=== PATIENT | male | born 1995 | race Caucasian/White ===

== ENCOUNTER 2017-10-28 21:14 | Emergency (ER) | payer SELFPAY ==
[2017-10-28 21:38] VITALS: BP 127/75
--- NOTE | 2017-10-28 21:57 | RADIOLOGY REPORT (SQ) ---
EXAM DESCRIPTION: WRIST RIGHT 3 VIEWS COMPLETED DATE/TIME: 10/28/2017 9:48 pm REASON FOR STUDY: Pain s/p injury COMPARISON: None. NUMBER OF VIEWS: Three views. TECHNIQUE: AP, lateral, and oblique radiographic images acquired of the right wrist. LIMITATIONS: None. FINDINGS: MINERALIZATION: Normal. BONES: No acute fracture or dislocation. No worrisome bone lesions. Normal alignment. SOFT TISSUES: No soft tissue swelling. No foreign body. OTHER: No other significant finding. IMPRESSION: NEGATIVE STUDY OF THE RIGHT WRIST. NO RADIOGRAPHIC EVIDENCE OF ACUTE INJURY. TECHNICAL DOCUMENTATION: JOB ID: [id number] [employer]- All Rights Reserved
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
== END 2017-10-28 22:55 | disposition home or self-care (01) ==
LOC: ER 21:14
DX: M25.531 Pain in right wrist (principal); G89.29 Other chronic pain
CPT/HCPCS: 99283; 73110; L3908

== ENCOUNTER 2017-11-12 04:08 | Emergency (ER) | payer SELFPAY ==
--- NOTE | 2017-11-12 05:46 | RADIOLOGY REPORT (SQ) ---
EXAM DESCRIPTION: WRIST RIGHT 3 VIEWS CLINICAL HISTORY: hand and wrist pain s/p injury COMPARISON: None. FINDINGS: 3 views of the right wrist. No acute fracture or dislocation. The scaphoid is unremarkable. The radius, capitate, and lunate are in appropriate anatomic alignment. IMPRESSION: No acute fracture.
--- NOTE | 2017-11-12 05:46 | RADIOLOGY REPORT (SQ) ---
EXAM DESCRIPTION: HAND RIGHT 3 VIEWS CLINICAL HISTORY: hand and wrist pain s/p injury COMPARISON: None. FINDINGS: 3 views of the right hand. No acute fracture or dislocation. Normal osseous mineralization. No radiopaque foreign body. IMPRESSION: No acute fracture or dislocation.
[2017-11-12] MEDS ORDERED: IBUPROFEN 600 MG TABLET PO ONE (05:53)
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
[2017-11-12 06:24] VITALS: BP 112/66
== END 2017-11-12 06:36 | disposition home or self-care (01) ==
LOC: ER 04:08
DX: S69.91XA Unspecified injury of right wrist, hand and finger(s), initial encounter (principal); S60.211A Contusion of right wrist, initial encounter; S60.221A Contusion of right hand, initial encounter; M79.641 Pain in right hand; M25.531 Pain in right wrist; M79.89 Other specified soft tissue disorders; W22.8XXA Striking against or struck by other objects, initial encounter
CPT/HCPCS: 99283; 73130; 73110; L3908

== ENCOUNTER 2018-04-09 22:50 | Emergency (ER) | payer OTHER ==
[2018-04-09 22:55] VITALS: BP 133/79
[2018-04-10] MEDS ORDERED: IBUPROFEN 800 MG TABLET PO ONE (00:05)
--- NOTE | 2018-04-10 00:06 | ER Document Report ---
HPI - HPI Patient complains to provider of: Left hip pain Onset: Other - 2 years Onset/Duration: Persistent Quality of pain: Achy Pain Level: 3 Context: She presents complaining of left anterior hip pain for the past 2 years. Patient states this was a donor site for bone graft. Patient states that he is followed up with [facility] multiple times regarding his continued left hip pain. Patient states that his surgeon said that he does not have an explanation for why the patient has continued to have pain. Patient denies any new injury or fever. Associated Symptoms: Other - Left hip pain Exacerbated by: Movement Relieved by: Denies Similar symptoms previously: Yes Recently seen / treated by doctor: No - ROS ROS below otherwise negative: Yes Systems Reviewed and Negative: Yes All other systems reviewed and negative - CONSTITUTIONAL Constitutional: DENIES: Fever, Chills - NEURO Neurology: DENIES: Weakness - MUSCULOSKELETAL Musculoskeletal: REPORTS: Extremity pain - L hip pain-chronic. DENIES: Swelling Past Medical History - General Information source: Patient - Social History Smoking Status: Current Every Day Smoker Smoking Education Provided: Yes Frequency of alcohol use: Occasional Drug Abuse: None Occupation: Contractor Family History: Reviewed & Not Pertinent Patient has suicidal ideation: No Patient has homicidal ideation: No - Medical History Medical History: Negative Renal/ Medical History: Denies: Hx Peritoneal Dialysis Past Surgical History: Reports: Hx Orthopedic Surgery - L hip Vertical Provider Document - CONSTITUTIONAL Agree With Documented VS: Yes Exam Limitations: No Limitations General Appearance: WD/WN, No Apparent Distress - INFECTION CONTROL TRAVEL OUTSIDE OF THE [place] IN LAST 30 DAYS: No - HEENT HEENT: Atraumatic, Normocephalic - NECK Neck: Normal Inspection, Supple - RESPIRATORY Respiratory: Breath Sounds Normal, No Respiratory Distress - CARDIOVASCULAR Cardiovascular: Regular Rate, Regular Rhythm Pulses: Normal: Femoral - BACK Back: Normal Inspection Notes: No spinal tenderness, no SI joint tenderness - MUSCULOSKELETAL/EXTREMETIES Musculoskeletal/Extremeties: MAEW, Tender - Left anterior hip joint tenderness along scar from previous surgical incision - NEURO Level of Consciousness: Awake, Alert, Appropriate Motor/Sensory: No Motor Deficit, No Sensory Deficit - DERM Integumentary: Warm, Dry, No Rash Course - Re-evaluation Re-evalutation: 04/10/18 01:[address] Watters, patient's x-ray reviewed, no acute findings. - Vital Signs Vital signs: Temp Pulse Resp BP Pulse Ox 97.7 F 88 17 133/79 H 96 04/09/18 22:53 04/09/18 22:53 04/09/18 22:53 04/09/18 22:53 04/09/18 22:53 - Diagnostic Test Radiology reviewed: Pending, Image reviewed Discharge - Discharge Clinical Impression: Chronic hip pain Qualifiers: Laterality: left Qualified Code(s): M25.552 - Pain in left hip; G89.29 - Other chronic pain; G89.29 - Other chronic pain Condition: Stable Disposition: HOME, SELF-CARE Instructions: Chronic Pain Control ([facility]) Additional Instructions: Return immediately for any new or worsening symptoms Followup with your primary care provider, call tomorrow to make a followup appointment Follow-up with your orthopedic surgeon regarding your continued left hip pain Follow-up with pain management for further evaluation of chronic pain Prescriptions: Naproxen [Naprosyn 250 Nmg Tablet] 1 tab PO BID #14 tablet Forms: Smoking Cessation Education Referrals: [facility] [Provider Group] - Follow up as needed [facility] [Provider Group] - Follow up as needed
[2018-04-10] MEDS ORDERED: HYDROCODONE/ACETAMINOPHEN 5-325 MG (6 TAB/ER DISP) PO PRN (01:50)
--- NOTE | 2018-04-10 03:48 | RADIOLOGY REPORT (SQ) ---
EXAM DESCRIPTION: XR HIP 2 VIEWS CLINICAL HISTORY: 22 years Male, Hip pain, hx bone graft COMPARISON: None. Findings: Bones, joints, and soft tissues of the left hip appear intact. IMPRESSION: No acute findings.
== END 2018-04-10 02:05 | disposition home or self-care (01) ==
LOC: ER 22:50
DX: G89.29 Other chronic pain (principal); M25.552 Pain in left hip; F17.200 Nicotine dependence, unspecified, uncomplicated
CPT/HCPCS: 99283

== ENCOUNTER 2018-08-10 05:59 | Emergency (ER) | payer OTHER ==
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
[2018-08-10 06:56] LABS: ALANINE AMINOTRANSFERASE 30 U/L (21-72); ALBUMIN 5.2 g/dL (3.5-5.0); ALKALINE PHOSPHATASE 91 U/L (38-126); ANION GAP 15 (5-19); ASPARTATE AMINO TRANSFERASE 21 U/L (17-59); BILIRUBIN,DIRECT 0.3 mg/dL (0.0-0.4); BILIRUBIN,TOTAL 0.9 mg/dL (0.2-1.3); BLOOD UREA NITROGEN 8 mg/dL (7-20); CALCIUM 10.5 mg/dL (8.4-10.2); CARBON DIOXIDE 28 mmol/L (22-30); CHLORIDE 99 mmol/L (98-107); GLUCOSE 100 mg/dL (75-110); POTASSIUM 3.7 mmol/L (3.6-5.0); SODIUM 142.3 mmol/L (137-145); TOTAL PROTEIN 8.4 g/dL (6.3-8.2)
[2018-08-10 07:09] LABS: APPEARANCE,URINE SLIGHTLY-CLOUDY; BILIRUBIN,URINE NEGATIVE (NEGATIVE); GLUCOSE, URINE NEGATIVE (NEGATIVE); KETONES,URINE TRACE mg/dL (NEGATIVE); LEUKOCYTE ESTERASE,URINE NEGATIVE (NEGATIVE); NITRITE,URINE NEGATIVE (NEGATIVE); PROTEIN,URINE 30 mg/dL (NEGATIVE); URINE SPECIFIC GRAVITY 1.027
[2018-08-10 07:10] LABS: COLOR,URINE YELLOW
[2018-08-10 07:26] LABS: URINE AMPHETAMINES SCREEN NEGATIVE; URINE BARBITURATES SCREEN NEGATIVE; URINE BENZODIAZEPINES SCREEN NEGATIVE; URINE COCAINE SCREEN NEGATIVE; URINE MARIJUANA (THC) SCREEN UNCONFIRMED POSITIVE; URINE METHADONE SCREEN NEGATIVE; URINE PHENCYCLIDINE SCREEN NEGATIVE
[2018-08-10 08:05] LABS: ABSOLUTE EOSINOPHILS # (AUTO) 0.2 10^3/uL (0.0-0.6); ABSOLUTE LYMPHOCYTES (AUTO) 1.2 10^3/uL (0.5-4.7); ABSOLUTE MONOCYTES (AUTO) 0.5 10^3/uL (0.1-1.4); ABSOLUTE NEUT (AUTO) 6.4 10^3/uL (1.7-8.2); BASOPHILS % (AUTO) 0.5 % (0-2); EOSINOPHILS % (AUTO) 2.3 % (0-6); HEMATOCRIT 45.4 % (37.9-51.0); HEMOGLOBIN 16.1 g/dL (13.5-17.0); LYMPHOCYTES % (AUTO) 14.3 % (13-45); MEAN CORPUSCULAR HEMOGLOBIN 33.5 pg (27.0-33.4); MEAN CORPUSCULAR HGB CONC 35.4 g/dL (32.0-36.0); MEAN CORPUSCULAR VOLUME 95 fl (80-97); MONOCYTES % (AUTO) 6.5 % (3-13); PLATELET COUNT 194 10^3/uL (150-450); RED BLOOD COUNT 4.79 10^6/uL (4.35-5.55); RED CELL DISTRIBUTION WIDTH 12.2 % (11.5-14.0); SEGMENTED NEUTROPHILS % (AUTO) 76.4 % (42-78); TOTAL CELLS COUNTED % (AUTO) 100 %; WHITE BLOOD COUNT 8.4 10^3/uL (4.0-10.5)
--- NOTE | 2018-08-10 08:53 | EKG REPORT ---
SEVERITY:- NORMAL ECG - SINUS RHYTHM : Confirmed by: Pavithra Metcalf 10-Aug-2018 08:52:32
[2018-08-10 12:17] VITALS: BP 132/78
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
== END 2018-08-10 12:17 | disposition home or self-care (01) ==
LOC: ER 05:59
DX: F32.9 Major depressive disorder, single episode, unspecified (principal)
CPT/HCPCS: 36415; 80048; 80076; 80307; 81001; 85025; 93005; 93010; 99285

== ENCOUNTER 2018-08-24 10:20 | Emergency (ER) | payer SELFPAY ==
[2018-08-24] MEDS ORDERED: ACETAMINOPHEN 325 MG TABLET PO ONE (10:32)
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
[2018-08-24 13:29] VITALS: BP 128/75
== END 2018-08-24 13:29 | disposition home or self-care (01) ==
LOC: ER 10:20
DX: S60.221A Contusion of right hand, initial encounter (principal); X58.XXXA Exposure to other specified factors, initial encounter
CPT/HCPCS: 99283